=== PATIENT | male | born 1925 | race Caucasian/White ===

== ENCOUNTER 2016-08-26 00:42 | Emergency (ER) | payer MEDICARE ==
[~2016-08-26] VITALS: Ht 177.8 cm; Wt 98.4 kg
[~2016-08-26 00:42] MED LIST: ACET-785 PO; ASPI-558 PO; CALC-494 PO; CALC-709 PO; FISH1CAP28 PO; IBUP1TAB PO; LORA-326 PO; MULT-934 PO; NIAC50TA15 PO; OLME20TA11 PO; OMEP20CA81 PO; SIMV20TA80 PO; SULF500T27 PO; TOLT4CAP12 PO; TRIA1TAB PO
[2016-08-26 01:05] VITALS: Ht 177.8 cm; Wt 98.4 kg
--- NOTE | 2016-08-26 01:17 | NUR ---
BLADDER SCAN BLADDER SCAN DONE, PT MOHSEN WELL EXPLAINED TO PT AND FAMILY THAT WE WILL NEED TO PUT IN CATHETER TO EMPTY BLADDER AND GIVE RELIEF. EXPLAINED THE MORAN WILL STAY IN AND THEY WILL FOLLOW UP WITH HIS DR. FAMILY REPORTS THEY UNDERSTAND THIS, PT STATES OKAY
--- NOTE | 2016-08-26 01:36 | NUR ---
MORAN #16 FR MORAN CATH INSERTED BY NORBERT RN PT MOHSEN WELL 1000CC YELLOE URINE RETURNED PT VERBALIZED RELIEF
--- NOTE | 2016-08-26 01:47 | ERPDOC ---
Departure Disposition Decision Date: August 26, 2016 Disposition Decision Time: 02:09 Disposition: 01 DISCHARGED HOME, SELF-CARE Impression Impression Impression: Primary Impression: Urinary retention Severity: Severe Condition: Improved Seen By: Physician only Referrals: ECTOR BRAGA MD (Family) 1 Day Patient Instructions: Urinary Retention in Men (ED) Problems/Meds/Labs Reviewed?: Yes Medications reviewed and manag: Yes Additional Instructions: You have had trouble going pee. We have fixed this with a reaves catheter. Keep this in place until you are seen by your doctor. He may refer you to see a urologist. Call your doctor for an appointment tomorrow. Follow up care ordered?: Yes Mental Status: Alert, Oriented HPI - Male General Chief Complaint: Male Urogenital Problems Stated Complaint: URINATION PROBLEMS Time Seen by Provider: :17 Source: patient, family Exam Limitations: dementia HPI - Male Initial Comments 89yo man presented to the ER by family for 3+ hrs inability to urinate. Pt has had hesitancy, but never obstruction. Takes no meds for BPH. Occurred At: home Onset: Gradual Duration: 4-6 hrs Pain Scale: Now & Worst: 8/10 Severity/Quality: fullness, throbbing Location: suprapubic Radiation: none Activities at Onset: none Prior Genitourinary Problems: none Modifying Factors: WORSE WITH: urinating Associated Symptoms: nausea/vomiting Hx of Similar Symptoms: No Allergies: Coded Allergies: lisinopril (Verified Allergy, Mild, COUGH, 08/26/16) Past History Patient Medical History (1) Overactive bladder Past Medical History Metabolic: hypercholesterolemia, hypertension ENMT: allergies Cardiac: CAD GI: GERD, ulcerative colitis Psychological: dementia Vaccines Hx Influenza Vaccination: Yes (02/17) Hx Pneumococcal Vaccination: Yes (2008) Review of Systems Male: retention All other Systems All Other Systems: Reviewed and Negative Physical Exam General General Nourishment: well nourished, well developed, appears stated age, no acute distress, adult, obese General Body Habitus: well groomed Vitals and Pain First Documented Vital Signs Date Time Temp Pulse Resp B/P Pulse Ox O2 Delivery O2 Flow Rate FiO2 08/26/16 01:05 97.6 97 20 203/100 95 Room Air Weight: Kilograms: 98.400 Height (feet): 5 Height (inches): 10.00 Triage Pain Scale: RN VS reviewed by Provider: Yes Normal Exams: Head: Normocephalic w/o trauma Eyes: Pupils are PERRLA w/ EOMI, No scleral icterus, irritation ENMT: No facial trauma, nasal exudates, pharyngeal erythema Neck: Full range of motion, without adenopathy, JVD Lymphatic: No lymphadenopathy Musculoskeletal: No tenderness, or deformity noted Integumentary: No rashes, hives, or bruising noted Neurologic: Patient is alert, and oriented Psychiatric: Patient exhibits, appropriate attention Respiratory (brief) Respiratory: FOUND: clear all foster, equal bilaterally, symmetrical, NOT FOUND : rales, wheezes Cardiovascular (brief) Cardiac: FOUND: regular rate, regular rhythm, NOT FOUND: click, gallop, murmur , pedal edema, peripheral edema, rub Capillary Refill: <2 sec Pulses: all distal extremities, equal, strong Abdomen (brief) Abdominal Brief: FOUND: bowel normo active x4, soft, NOT FOUND: distended, hepatosplenomegaly, pulsatile mass, tender Differential Diagnoses Considering: Hematuria, Prostatitis, Pyelonephritis, Urinary Retention, UTI Progress Results/Orders Orders Procedure Category Date Status Time Reaves (Ed) EDM 08/26/16 Transmitted 01:33 Catheter Needs JYOTI 08/26/16 In Process Assessment 01:33 Bladder Scanner (Ed) EDM 08/26/16 Transmitted 01:33 UA, LAB 08/26/16 In Process Dip&Micro(Complete) & 01:49 Lab Results Laboratory Tests Test 08/26/16 01:49 Urine Collection Type Straight cath Urine Color Yellow Urine Turbidity Clear Urine pH 5.5 Urine Specific Crumpler 1.010 Urine Protein Trace Urine Glucose (UA) Negative Urine Ketones Negative Urine Blood 3+ Urine Nitrite Negative Urine Bilirubin Negative Urine Urobilinogen 0.2EU/DL Urine Leukocyte Esterase Negative Urine RBC Pending Urine WBC Pending Urine Bacteria Pending Progress Progress Relief of sx with reaves placement. No evidence of UTI. Pt will need to f/u with PCM +/- urology f/u. Discussed dx, prognosis, tx, and need for f/u with pt and family who voiced understanding. F/u with PCM. KENIA TENORIO DO August 26, 2016 01:47
[2016-08-26 01:55] LABS: BLOOD, URINE 3+ (NEGATIVE); COLOR,URINE YELLOW (YELLOW); LEUKOCYTE ESTERASE ,URINE NEGATIVE (NEGATIVE); NITRITE,URINE NEGATIVE (NEGATIVE); UROBILINOGEN,URINE 0.2 EU/DL (NORMAL)
--- NOTE | 2016-08-26 02:05 | NUR ---
LEG BAG LEG BAG PLACED WITH INSTRUCTIONS TO THE PATIENT, AND DAUGHTER
[2016-08-26 02:06] LABS: BACTERIA,URINE NONE SEEN (NEGATIVE); RBC,URINE 30-50 /HPF (0-3); WBC,URINE NONE SEEN /HPF (0-5)
--- NOTE | 2016-08-26 02:15 | NUR ---
TEACHING CLEANING OF THE CATHETER AND SELF TEACHING DONE FOR THE PT AND FAMILY VERBALIZE UNDERSTANDING AND DENIES ANY QUESTIONS
--- NOTE | 2016-08-26 02:41 | NUR ---
INSTRUCTIONS PT DAUGHTER AND VERBALIZE UNDERSTANDING OF ALL HAS NO QUESTIONS ABOUT CARE OF CATH OR USING THE LEG BAG WILL CALL DR BRAGA OFFICE LATER TODAY FOR FOLLOW-UP
[2016-08-26 02:43] VITALS: BP 111/59; PULSE 71; RESP 18; TEMP 97.6; O2SAT 96
--- NOTE | 2016-08-26 02:43 | NUR ---
DISMISS PT DISMISSED PER W/C WITH FAMILY
[2016-08-26] MEDS ORDERED: CARV3.123 PO (08:41)
[2016-08-26] MEDS ORDERED: LEVO75TA10 PO (08:41)
[2016-08-26] MEDS ORDERED: POTA-12 PO (08:41)
[2016-08-26] MEDS ORDERED: FURO20TA4 PO (08:41)
[2016-08-26] MEDS ORDERED: PRED10TA PO (08:41)
== END 2016-08-26 02:43 | disposition home or self-care (01) ==
LOC: ED 00:42
DX: R33.9 Retention of urine, unspecified (principal)
CPT/HCPCS: 51702; 81001

== ENCOUNTER 2016-09-03 15:08 | Inpatient (IN) ==
[2016-09-09] MEDS ORDERED: ONDANSETRON 4 MG/2 ML INJECTION IVP PRN (05:00)
[2016-09-09] MEDS ORDERED: LEVOTHYROXINE 75 MCG TABLET PO SCH (06:30)
[2016-09-09] MEDS ORDERED: OMEPRAZOLE 20 MG CAPSULE PO SCH (06:30)
[2016-09-09] MEDS ORDERED: SALINE FLUSH 10ml SYRINGE IV PRN (06:48)
[2016-09-09] MEDS ORDERED: CHOLESTYRAMINE LIGHT 4 G PACKET PO SCH (07:30)
[2016-09-09] MEDS ORDERED: CARVEDILOL 3.125 MG TABLET PO SCH (08:00)
[2016-09-09] MEDS ORDERED: LACTOBACILLUS (15B cfu) CAPSULE PO SCH (08:00)
[2016-09-09] MEDS ORDERED: PredniSONE 20 MG TABLET PO SCH (08:00)
--- NOTE | 2016-09-09 08:29 | Discharge Summary ---
Discharge Information Date of admission: 09/03/16 15:08 <Sudhakar Izquierdo - 09/09/16 13:26> 09/03/16 15:08 <Cristina Baldwin V - 09/09/16 09:43> Anticipated date of discharge: 09/09/16 <Cristina Baldwin V - 09/09/16 09:43> Attending Physician: Rome Ruiz MD <Sudhakar Izquierdo - 09/09/16 13:26> Rome Ruiz MD <Cristina Baldwin V - 09/09/16 09:43> Consults: 09/08/16 15:30 Physician Consult [CONS] Routine Consulting Provider: Sidney Gil Reason For Exam: Cont Care Ordering Provider has Notified Digital Cartographer: Yes Physician Consult [CONS] Routine Consulting Provider: Opal Skinner Reason For Exam: Cont Care Ordering Provider has Notified Digital Cartographer: Yes 09/08/16 15:31 Physician Consult [CONS] Routine Consulting Provider: Heide Hinson Reason For Exam: Cont Care Ordering Provider has Notified Digital Cartographer: Yes <Sudhakar Izquierdo - 09/09/16 13:26> 09/08/16 15:30 Physician Consult [CONS] Routine Consulting Provider: Sidney Gil Reason For Exam: Cont Care Ordering Provider has Notified Digital Cartographer: Yes Physician Consult [CONS] Routine Consulting Provider: Opal Skinner Reason For Exam: Cont Care Ordering Provider has Notified Digital Cartographer: Yes 09/08/16 15:31 Physician Consult [CONS] Routine Consulting Provider: Heide Hinson Reason For Exam: Cont Care Ordering Provider has Notified Digital Cartographer: Yes <Cristina Baldwin V - 09/09/16 08:29> - Discharge Diagnosis (1) Ulcerative colitis Status: Acute (2) Diarrhea Qualifiers: Diarrhea type: unspecified type Qualified Code(s): R19.7 - Diarrhea, unspecified Status: Resolved (3) Hyperkalemia Status: Resolved (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 (5) CKD (chronic kidney disease) Status: Chronic <Cristina Baldwin V 09/09/16 10:51> (1) Ulcerative colitis Status: Acute (2) Diarrhea Qualifiers: Diarrhea type: unspecified type Qualified Code(s): R19.7 - Diarrhea, unspecified Status: Resolved (3) Hyperkalemia Status: Resolved (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 He has been struggling with increased diarrhea for 2 weeks. He was originally seen by primary care provider at [facility] on August 23 reporting worsening diarrhea. At that time he was placed on prednisone for 7 day taper as well as Imodium and sulfasalazine. Patient was then seen at [facility] emergency room on 08/25 for acute urinary retention. At that time, a Lamas catheter was placed and patient was instructed to leave it intact for 4 weeks. He continued to have ongoing diarrhea and was up hourly overnight with liquid stools. He presented back to see primary care provider, Giovanna Buchanan APRN today for further evaluation. Given the continued diarrhea stools despite outpatient treatment. The hospitalist services were contacted and patient was accepted for direct admission for further evaluation and treatment. Kedar [place] [facility] He is hard of hearing and history and details are obtained from his at the bedside. On examination he is resting comfortably in bed without acute distress. His abdomen is soft and nontender on palpation. He does have a Lamas catheter in-place that is draining without difficulty. We did discuss advanced directives. Patient does wish to be a full code <Pieter Baldwinchristina Clark 09/09/16 09:43> Hospital Course Hospital course: S: Pt doing well today. 1 semi-formed BM this am. O: Gen: Alert and awake Cards: RRR, no murmus Abd: soft, non-tender Ext: no clubbing, cyanosis A/P: Much improved, finished 7 day abx course, will taper prednisone as outpt, discharge on lower mainainence dose of mesalamine <Sudhakar Izquierdo Matty - 09/09/16 13:26> Mr. Weinstein is a 89 year old male who was admitted on 09/03/16 for acute exacerbation of ulcerative colitis with ongoing diarrhea, failed outpatient treatment. He was placed on IV Flagyl as well as Solu-Medrol 125 milligrams IV every 6 hours for inflammation. Further laboratory studies was reviewed and leukocytosis has continued to improve. Stool panel was obtained that was negative for acute infectious process. Over the course of his hospital stay his diarrhea did improve. Due to his continued weakness. He was accepted to [facility] for skilled rehabilitation. He has completed 7 day course of Flagyl. We will decrease sulfasalazine to 500 milligrams 3 times a day. May continue to use Imodium as needed for loose stools. It is recommended that he follow with his primary care provider, Dr. Figueroa in the next 1-2 weeks. This is a brief synopsis of patient's hospitalization. For full details, please refer to chart. <Cristina Baldwin V - 09/09/16 09:43> DVT Prophylaxis: SCD's <Cristina Baldwin V - 09/09/16 09:43> Discharge Plan - Med Rec/Dispo Prescriptions: Continue Loperamide HCl [Loperamide] See Label Instructions PO Q4H PRN #30 PRN Reason: loose stool Discontinued Calcium Citrate/Vitamin D3 (Citracal + D Caplet) 1 tab PO BID #0 No Action Tolterodine Tartrate [Detrol LA] 4 mg PO DAILY #0 acetaminophen 325 mg tablet 325 mg PO PRN #0 Calcium Carbonate/Vitamin D3 (Vitamin D-3 400 Units Tablet) 1 tab PO DAILY # 0 Ibuprofen/Diphenhydramine (Advil Pm Caplet) 1 tab PO HS #0 Loratadine (Claritin) 10 mg PO BID #0 triamterene 37.5 mg-hydrochlorothiazide 25 mg tablet 1 tab PO DAILY #0 Niacin 50 mg PO DAILY #0 Willow-3 Fatty Acids/Fish Oil [Willow 3 1,000 mg Softgel] 2 cap PO BID #0 Omeprazole (Prilosec) 20 mg PO BID #0 Simvastatin [Zocor] 20 mg PO HS #0 PredniSONE [Deltasone] 10 mg PO DAILY #39 <Sudhakar Izquierdo - 09/09/16 13: 26> - Disposition 03 To [facility] ([facility]) <Sudhakar Izquierdo - 09/09/16 13:26>
[2016-09-09] MEDS ORDERED: TRIAMTERENE/HCTZ 37.5 MG-25 MG TABLET PO SCH (09:00)
[2016-09-09] MEDS ORDERED: LORATADINE 10 MG TABLET PO SCH (09:00)
[2016-09-09] MEDS ORDERED: CYANOCOBALAMIN (B-12) 500mcg TABLET PO SCH (09:00)
--- NOTE | 2016-09-09 09:49 | Extended Care Facility Orders ---
Admission Orders Admit to:: Care Home Allergies/Adverse Reactions: Allergies levofloxacin Allergy (Intermediate, Verified 09/08/16 17:01) CONFUSION lisinopril Allergy (Mild, Verified 09/08/16 17:01) COUGH Admitting Diagnosis: Uc With Acute Flair Admitting Physician: Rome Ruiz MD Attending Physician: Rome Ruiz MD Code Status: Full code Rehab Potential: good Rehab Prognosis: good Diet: 09/08/16 Dinner Regular Diet [DIET] Diet Modifications: May use Facility Protocol or Standing Orders: Yes May have flu vaccine: Yes Evaluations/Treatment: PT, OT Care Home Certification: I certify that SNF services are required to be given on an Inpatient basis because of the patients need for group home care on a continuing basis for the condition(s) for which he/she received inpatient hospital services prior to his/her transfer to the SNF. SNF inpatient care is necessary for the following reasons - Additional Information
[2016-09-09] MEDS ORDERED: NS 1,000 ML IV SCH (20:00)
[2016-09-09] MEDS ORDERED: SIMVASTATIN 20 MG TABLET PO SCH (22:00)
[2016-09-09] MEDS ORDERED: DiphenhydrAMINE 25 MG CAPSULE PO SCH (22:00)
[2016-09-09] MEDS ORDERED: IBUPROFEN 200 MG TABLET PO SCH (22:00)
== END 2016-09-09 14:26 | DRG 387 ==
LOC: MED 15:08
PROVIDERS: ADMIT Hospitalist; ATTEND Hospitalist

== ENCOUNTER 2016-09-25 03:16 | Inpatient (IN) ==
[2016-09-25] MEDS ORDERED: NS 1,000 ML IV ONE (03:39)
--- NOTE | 2016-09-25 03:39 | Emergency Department Report ---
Altered Mental Status HPI - General Stated Complaint: Confusion Time Seen by Provider: 09/25/16 03:30 Source: patient, EMS Mode of arrival: EMS Limitations: altered mental status - History of Present Illness HPI narrative: Patient presents after recent hospitalization diagnosed with "upper respiratory infection", finishing zithromax prescription today. He is currently in a rehab unit following hospitalization. Nursing staff called EMS tonight with altered mental status and abnormal vital signs including hypoxemia, fever, and tachyardia. Patient endorses low abdominal/pelvic pain. Patient had O2 saturation of 87% earlier in the day, was placed on oxygen and improved. Staff found patient to be increasingly confused, poorly directable, and abnormal vital signs were of concern. EMS checked patient's CO level and found it to be elevated at 15 on scene. A bag of NS was started on route to the ED. Currently patient is asymptomatic and has no complaints. - Related Data Home Medications Medication Instructions Recorded Confirmed Calcium Carbonate/Vitamin D3 1 tab PO DAILY #0 07/10/09 09/08/16 (Vitamin D-3 400 Units Tablet) Ibuprofen/Diphenhydramine (Advil 1 tab PO HS #0 07/10/09 09/08/16 Pm Caplet) Loratadine (Claritin) 10 mg PO BID #0 07/10/09 09/08/16 Niacin 50 mg PO DAILY #0 07/10/09 09/08/16 Galvin-3 Fatty Acids/Fish Oil 2 cap PO BID #0 07/10/09 09/08/16 [Galvin 3 1,000 mg Softgel] Omeprazole (Prilosec) 20 mg PO BID #0 07/10/09 09/08/16 Simvastatin [Zocor] 20 mg PO HS #0 07/10/09 09/08/16 Tolterodine Tartrate [Detrol LA] 4 mg PO DAILY #0 07/10/09 09/08/16 acetaminophen 325 mg tablet 325 mg PO PRN #0 07/10/09 09/08/16 triamterene 37.5 1 tab PO DAILY #0 07/10/09 09/08/16 mg-hydrochlorothiazide 25 mg tablet carvedilol 3.125 mg tablet 3.125 mg PO BID 09/02/16 09/08/16 furosemide 20 mg tablet 20 mg PO .COMPLEX tab 09/02/16 09/08/16 levothyroxine 75 mcg tablet 75 mcg PO ACB tab 09/02/16 09/08/16 losartan 100 mg tablet 50 mg PO BID tab 09/02/16 09/08/16 multivitamin tablet 1 tab PO DAILY 09/02/16 09/08/16 potassium chloride ER 10 mEq 10 meq PO .TIW tab 09/02/16 09/08/16 tablet,extended release sulfasalazine 500 mg tablet 500 mg PO TID #0 tab 09/02/16 09/08/16 Previous Rx's Medication Instructions Recorded PredniSONE [Deltasone] 10 mg PO DAILY #39 09/08/16 Loperamide HCl [Loperamide] See Label Instructions PO Q4H PRN 09/09/16 #30 diphenoxylate-atropine 2.5 1 tab PO TID PRN #30 tab 09/17/16 mg-0.025 mg tablet Allergies Allergy/AdvReac Type Severity Reaction Status Date / Time levofloxacin Allergy Intermediate CONFUSION Verified 09/08/16 17:01 lisinopril Allergy Mild COUGH Verified 09/08/16 17:01 Review of Systems All systems: reviewed and negative except as stated Neurological: Reports: confusion [facility] Medical History (Last Updated 09/09/16 @ 09:43 by Cristina Baldwin APRN) CKD (chronic kidney disease) stage 2, 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) Diabetes mellitus (Chronic Medical) 1997 GERD (gastroesophageal reflux disease) (Chronic Medical) HTN (hypertension) (Chronic Medical) Hx of adenomatous polyp of colon (Chronic Medical) Hyperlipidemia (Chronic Medical) Obesity (BMI 30.0-34.9) (Chronic Medical) Presbycusis (Chronic Medical) Psoriasis (Chronic Medical) L leg Ulcerative colitis (Chronic Medical) Family History: Family History Father , at age 89 CHF (congestive heart failure) Mother , at age 82 CHF (congestive heart failure) Brother , at age 43 Diabetes Brother , at age 47 Chronic bronchitis Thrombosis - Social History Smoking status: Never smoker Physical Exam - Limitations Limitations: altered mental status (patient is alert, poorly oriented but cooperative) - Normal Exams: Head:: Normocephalic without trauma Eyes:: Pupils are PERRLA w/ EOMI, No scleral icterus, irritation, or foreign bodies noted ENMT:: No facial trauma, nasal exudates, pharyngeal erythema, or exudates are noted Neck:: Full range of motion, without adenopathy, JVD, bruits or thyromegaly Chest/Respirations:: Clear all foster (course but clear), with good airflow, and symmetry bilaterally Cardiovascular:: Regular rate and rhythm, without murmur or gallop, Pulses 2+ all extremities, capillary refill, <2 seconds all extremities Abdomen:: Bowel sounds positive, soft, non-tender, non-distended, no hepatosplenomegaly, masses or bruits noted Lymphatic:: No lymphadenopathy, or lymphedema noted Musculoskeletal:: No tenderness, or deformity noted, good range of motion, all extremities Integumentary:: No rashes, hives, or bruising noted, hair and nails, without abnormality Neurological:: Patient is alert, and oriented, cranial nerves, motor/sensory/ cerebellar, exams w/o gross deficits, to observation Psychiatric:: Patient exhibits, appropriate attention, emotion and affect Altered Mental Status - MDM Narrative Medical decision making narrative: CBC - N CMP - N lactate -N procalcitonin - N carboxyhemoglobin - N chest x-ray - right lower lobe infiltrate UA - normal Case discussed with Dr. Shaffer, we'll admit for right lower lobe pneumonia, start patient on cefepime, and continue IV fluids and respiratory care - Lab Data Result diagrams: 09/25/16 03:59 09/25/16 03:59 Critical Care Time Critical Care Time: Yes Total Critical Care Time: 45 Attestation: Patient required critical care for tachycardia, hypotension, and decreased level of consciousness secondary to right lower lobe pneumonia with dehydration Disposition Clinical Impression: Right lower lobe pneumonia Qualifiers: Pneumonia type: due to unspecified organism Qualified Code(s): J18.1 - Lobar pneumonia, unspecified organism Disposition: 02 To [facility] [place] Acute Care Condition: Improved Prescriptions: No Action Tolterodine Tartrate [Detrol LA] 4 mg PO DAILY #0 acetaminophen 325 mg tablet 325 mg PO PRN #0 Calcium Carbonate/Vitamin D3 (Vitamin D-3 400 Units Tablet) 1 tab PO DAILY # 0 Ibuprofen/Diphenhydramine (Advil Pm Caplet) 1 tab PO HS #0 Loperamide HCl [Loperamide] See Label Instructions PO Q4H PRN #30 PRN Reason: loose stool Loratadine (Claritin) 10 mg PO BID #0 triamterene 37.5 mg-hydrochlorothiazide 25 mg tablet 1 tab PO DAILY #0 Niacin 50 mg PO DAILY #0 Galvin-3 Fatty Acids/Fish Oil [Galvin 3 1,000 mg Softgel] 2 cap PO BID #0 Omeprazole (Prilosec) 20 mg PO BID #0 Simvastatin [Zocor] 20 mg PO HS #0 PredniSONE [Deltasone] 10 mg PO DAILY #39 Referrals: Vickey Figueroa MD [Family Provider] - - Seen By: physician
[2016-09-25] MEDS: NS 1,000 ML IV SCH ×2 (04:00→20:04)
[2016-09-25] MEDS ORDERED: ALBUTEROL 2.5mg/3ml (0.083%) NEB AEROSOL ONE (04:26)
[2016-09-25] MEDS ORDERED: LEVOFLOXACIN PREMIX 500 MG/100 ML BAG IV SCH (05:00)
[2016-09-25] MEDS ORDERED: ACETAMINOPHEN 325 MG TABLET PO PRN (05:08)
[2016-09-25] MEDS ORDERED: SENNA + DOCUSATE TABLET PO PRN (05:08)
[2016-09-25] MEDS ORDERED: ONDANSETRON 4 MG/2 ML INJECTION IVP PRN (05:08)
[2016-09-25] MEDS ORDERED: NS 1,000 ML IV SCH (05:15)
[2016-09-25] MEDS ORDERED: CEFEPIME 2 GM INJECTION IV ONE (05:30)
--- NOTE | 2016-09-25 06:47 | History & Physical Report ---
History of Present Illness Date: 09/25/16 Chief complaint: cough, wheezing HPI: Mr. Weinstein is a 89 yo who was recently admitted for ulcerative colitis 2 weeks ago and sent to [facility] for inpt rehab and presents back to the ER due to weakness and cough. The family at the bedside report that he started to develop a cough with wheezing about a week ago. He was then placed on azithromycin and breahting treatments for this. His symptoms got progressively worse over the past 3 days, early this morning staff noted that his Sa)2 was in the 80's and pt was then brought to the er. Review of Systems - Constitutional Constitutional: Present: fever(s). Absent: anorexia - Cardiovascular Cardiovascular: Absent: chest pain, syncope - Respiratory Respiratory: Present: cough, dyspnea, dyspnea on exertion, wheezing. 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) Diabetes mellitus (Chronic Medical) 1997 GERD (gastroesophageal reflux disease) (Chronic Medical) HTN (hypertension) (Chronic Medical) Hx of adenomatous polyp of colon (Chronic Medical) Hyperlipidemia (Chronic Medical) Obesity (BMI 30.0-34.9) (Chronic Medical) Presbycusis (Chronic Medical) Psoriasis (Chronic Medical) L leg Ulcerative colitis (Chronic Medical) Family History: Family History Father , at age 89 CHF (congestive heart failure) Mother , at age 82 CHF (congestive heart failure) Brother , at age 43 Diabetes Brother , at age 47 Chronic bronchitis Thrombosis - Social History Smoking status: Never smoker Medications Home Medications Medication Instructions Recorded Confirmed Type Calcium Carbonate/Vitamin D3 1 tab PO DAILY #0 07/10/09 09/08/16 History (Vitamin D-3 400 Units Tablet) Ibuprofen/Diphenhydramine (Advil 1 tab PO HS #0 07/10/09 09/08/16 History Pm Caplet) Loratadine (Claritin) 10 mg PO BID #0 07/10/09 09/08/16 History Niacin 50 mg PO DAILY #0 07/10/09 09/08/16 History [place]-3 Fatty Acids/Fish Oil 2 cap PO BID #0 07/10/09 09/08/16 History [[place] 3 1,000 mg Softgel] Omeprazole (Prilosec) 20 mg PO BID #0 07/10/09 09/08/16 History Simvastatin [Zocor] 20 mg PO HS #0 07/10/09 09/08/16 History Tolterodine Tartrate [Detrol LA] 4 mg PO DAILY #0 07/10/09 09/08/16 History acetaminophen 325 mg tablet 325 mg PO PRN #0 07/10/09 09/08/16 History triamterene 37.5 1 tab PO DAILY #0 07/10/09 09/08/16 History mg-hydrochlorothiazide 25 mg tablet carvedilol 3.125 mg tablet 3.125 mg PO BID 09/02/16 09/08/16 History furosemide 20 mg tablet 20 mg PO .COMPLEX tab 09/02/16 09/08/16 History levothyroxine 75 mcg tablet 75 mcg PO ACB tab 09/02/16 09/08/16 History losartan 100 mg tablet 50 mg PO BID tab 09/02/16 09/08/16 History multivitamin tablet 1 tab PO DAILY 09/02/16 09/08/16 History potassium chloride ER 10 mEq 10 meq PO .TIW tab 09/02/16 09/08/16 History tablet,extended release sulfasalazine 500 mg tablet 500 mg PO TID #0 tab 09/02/16 09/08/16 History Allergies Allergy/AdvReac Type Severity Reaction Status Date / Time levofloxacin Allergy Intermediate CONFUSION Verified 09/08/16 17:01 lisinopril Allergy Mild COUGH Verified 09/08/16 17:01 Exam Vital Signs: Temp Pulse Resp BP Pulse Ox 98.5 F 95 22 134/59 98 09/25/16 03:15 09/25/16 06:04 09/25/16 05:10 09/25/16 06:04 09/25/16 06:04 Height: 1.83 m Weight: 105.3 kg - Constitutional Present: no acute distress - Routine Respiratory Exam Present: rhonchi, wheezes, crackles - Routine Cardiovascular Exam Present: RRR, murmur - Routine Abdominal Exam Present: soft, normoactive bowel sounds, tenderness, non distended - Routine Skin Exam Present: lesions. Absent: intact Comments: decubitus on sacral area Results - Labs CBC & Chem 7: 09/25/16 03:59 09/25/16 03:59 Assessment and Plan (1) Right lower lobe pneumonia Current visit: Yes Status: Acute 09/25/16 06:50 The pt has HCAP but allergic to Levoquin, thus will proceed with Cefepime and vanco. Pharmacy consulted for dosing, also continue on breathing tx, supplemental oxygen, CXR reviewed, repeat labs in am. (2) Ulcerative colitis Current visit: No Status: Acute 09/25/16 06:52 continues to be a problem, will cont on lomtil, wound care for the decubitus, (3) CKD (chronic kidney disease) Current visit: No Status: Chronic (4) Anemia Current visit: Yes Status: Acute (5) Anemia Current visit: Yes Status: Acute Sepsis Assessment - Evaluation Sepsis screening result: No Definite Risk - Focused Exam Vital Signs Pulse BP Pulse Ox 09/25/16 06:04 95 134/59 98 09/25/16 06:00 96 92 09/25/16 05:58 99 92 Hospital Course Summary Disclaimer: The visit summary below is not to be considered part of the above Progress Note.
--- NOTE | 2016-09-25 08:00 | Pharmacy Consult-Antibiotics ---
Pharmacy Consult-Vancomycin - Laboratory Information WBC 12.6 T/MM3 (4.5-11.0) H 09/25/16 03:59 BUN 34.0 MG/DL (9-20) H 09/25/16 03:59 Creatinine 1.1 MG/DL (0.8-1.5) 09/25/16 03:59 Procalcitonin < 0.05 NG/ML 09/25/16 03:59 - Consult Information VANCOMYCIN CONSULT: Dx: PNEUMONIA Current Renal Fx: SCr = 1.1mg/dl. Will give Vancomycin 1500mg IV LOADING DOSE followed by vancomycin 1 gram IV q12hrs. Will continue to monitor and adjust regimen to maintain therapeutic levels. Thank you.
[2016-09-25] MEDS ORDERED: CEFEPIME 1 GM in NS 100 ML IV SCH ×2 (09:00→11:30)
[2016-09-25] MEDS ORDERED: CEFEPIME 2 GM INJECTION IV SCH (09:00)
--- NOTE | 2016-09-25 13:20 | Progress Note ---
Subjective: Pt doing well this am, denies any cp, sob, n/v/d, f/c. Reports a cough that is a little worse then baseline but overall reports feeling ok. Pt is alert and oriented x3. Objective Vital signs: Temp Pulse Resp BP Pulse Ox 97.1 F 95 22 109/64 95 09/25/16 07:47 09/25/16 07:47 09/25/16 06:00 09/25/16 07:47 09/25/16 07:47 Weight: 105.1 kg - Constitutional Present: no acute distress - Routine HEENT Exam Head: Present: normocephalic, atraumatic Eye: Present: EOMI - Routine Respiratory Exam Present: CTA bilaterally. Absent: wheezes - Routine Cardiovascular Exam Present: RRR, no murmur - Routine Abdominal Exam Present: soft, non distended, non tender - Routine Extremities Exam Present: edema. Absent: cyanosis, clubbing - Routine Skin Exam Present: intact, dry - Routine Neurological Exam Present: alert, oriented X3 Results - Labs CBC & Chem 7: 09/25/16 03:59 09/25/16 03:59 Assessment and Plan (1) Ulcerative colitis Current visit: No Status: Acute 09/25/16 06:52 continues to be a problem, will cont on lomtil, wound care for the decubitus, (2) CKD (chronic kidney disease) Current visit: No Status: Chronic (3) Right lower lobe pneumonia Current visit: Yes Status: Acute 09/25/16 06:50 The pt has HCAP but allergic to Levoquin, thus will proceed with Cefepime and vanco. Pharmacy consulted for dosing, also continue on breathing tx, supplemental oxygen, CXR reviewed, repeat labs in am. (4) Anemia Current visit: Yes Status: Acute (5) Anemia Current visit: Yes Status: Acute Assessment and Plan: URI -Pt likely has URI, CXR does not show any acute pathology, pt has minimal cough and sputum production -Vitals are stable, on RA sats are ~95% -Will do viral panel, mentation seems to be at baseline -Will stop all abx UC -Stable, on prednisone? CKD HTN DM Sepsis Assessment - Evaluation Sepsis screening result: No Definite Risk - Focused Exam Vital Signs Temp Pulse Resp BP Pulse Ox 09/25/16 07:47 97.1 F 95 109/64 95 09/25/16 06:04 95 134/59 98 09/25/16 06:00 96 22 134/59 92 09/25/16 05:58 99 92 Respiratory exam: Present: rhonchi, wheezes, crackles Cardiovascular exam: Present: RRR, murmur Hospital Course Summary Disclaimer: The visit summary below is not to be considered part of the above Progress Note. Hospital Course: 09/25/16 13:20 Pt seems to be doing well this am, unclear why he was admitted, pt was likely just dehydrated and possibly had URI, labs and vitals are mostly unremarkable for acute pathology. Will plan for d/c tomorrow.
[2016-09-25] MEDS: BUDESONIDE INH.SOLN 0.5mg/2ml NEB AEROSOL SCH (21:04)
[2016-09-25] MEDS: SIMVASTATIN 20 MG TABLET PO SCH (23:27)
[2016-09-26] MEDS ORDERED: FUROSEMIDE 20 MG/2 ML INJECTION IVP ONE (02:27)
[2016-09-26] MEDS: SALINE FLUSH 10ml SYRINGE IVF PRN (02:42)
[2016-09-26] MEDS: NS 1,000 ML IV SCH (06:42)
[2016-09-26] MEDS ORDERED: 1/2 NS 500 ML IV SCH (07:56)
--- NOTE | 2016-09-26 09:06 | XRay Report ---
INDICATION: sepsis PROCEDURE: CHEST 2-VIEWS UPRIGHT (PA & LAT) Encounter: Initial COMPARISON: None FINDINGS: Patchy airspace disease in the lower lobes, right greater than left. Small pleural effusions. No pneumothorax The heart size, mediastinal contours and pulmonary vascularity are within normal limits. There is no significant skeletal abnormality. IMPRESSION: Lower lobe pneumonia or aspiration with small effusions. .
--- NOTE | 2016-09-26 09:17 | Progress Note ---
Subjective: Pt denies any cp, sob, n/v/d, f/c. Reports he is feeling okay but would like to talk to his daughter and son in law. Objective Vital signs: Temp Pulse Resp BP Pulse Ox 99.1 F 101 H 26 H 141/77 H 97 09/26/16 05:10 09/26/16 08:03 09/26/16 05:10 09/26/16 05:10 09/26/16 05:10 Weight: 105.9 kg - Constitutional Present: no acute distress - Routine HEENT Exam Head: Present: normocephalic, atraumatic Eye: Present: EOMI ENT: Present: mucous membranes moist - Routine Respiratory Exam Present: CTA bilaterally. Absent: wheezes - Routine Cardiovascular Exam Present: RRR, no murmur - Routine Abdominal Exam Present: soft, non distended, non tender - Routine Extremities Exam Present: edema. Absent: cyanosis, clubbing - Routine Skin Exam Present: intact, dry Results - Labs CBC & Chem 7: 09/26/16 04:37 09/26/16 04:37 Assessment and Plan (1) Ulcerative colitis Current visit: No Status: Acute 09/25/16 06:52 continues to be a problem, will cont on lomtil, wound care for the decubitus, (2) CKD (chronic kidney disease) Current visit: No Status: Chronic (3) Right lower lobe pneumonia Current visit: Yes Status: Acute 09/25/16 06:50 The pt has HCAP but allergic to Levoquin, thus will proceed with Cefepime and vanco. Pharmacy consulted for dosing, also continue on breathing tx, supplemental oxygen, CXR reviewed, repeat labs in am. (4) Anemia Current visit: Yes Status: Acute (5) Anemia Current visit: Yes Status: Acute Assessment and Plan: Cough -CXR does not show any acute pathology, pt has minimal cough and sputum production -Vitals are stable, on RA sats are ~95% -viral panel neg, mentation seems to be at baseline -Will stop all abx AMS/dementia -Pt likely has dementia and is likely close to baseline -Pt was admitted to the hospital a couple of weeks ago and had very similar mentation most of the hospital stay -TSH wnls, B12 wnls, CT head in 08/25 showed moderate atrophy and chronic microvascular ischemia -Will discuss case with family, pt needs neuropsych testing UC -Stable, on prednisone Leukocytosis -On prednisone Mild Hypernatremia -Na 146, will do 150ml/hr D5, recheck Na in a couple of hrs LE edema -Pt has 3+ pitting edema up to thigh and scrotum -Pt received generous IV fluids on admission d/t possibility of infection -Will do lasix 40 IV BID CKD -Stable Ppx -DVT Sepsis Assessment - Evaluation Sepsis screening result: Sepsis Risk - Focused Exam Vital Signs Temp Pulse Resp BP Pulse Ox 09/26/16 08:03 101 H 09/26/16 05:10 99.1 F 104 H 26 H 141/77 H 97 09/26/16 00:00 102 H 09/25/16 23:36 97.4 F 111 H 24 156/85 H 91 Respiratory exam: Present: rhonchi, wheezes, crackles Cardiovascular exam: Present: RRR, murmur Hospital Course Summary Disclaimer: The visit summary below is not to be considered part of the above Progress Note. Hospital Course: 09/25/16 13:20 Pt seems to be doing well this am, unclear why he was admitted, pt was likely just dehydrated and possibly had URI, labs and vitals are mostly unremarkable for acute pathology. Will plan for d/c tomorrow. 09/26/16 09:31 Pt doing well, will treat hypernatremia and fluid overload today and plan for d/ c back to facility on Tuesday.
[2016-09-26] MEDS: FUROSEMIDE 40 MG/4 ML INJECTION IVP SCH ×3 (09:35→21:46)
[2016-09-26] MEDS: PredniSONE 10 MG TABLET PO SCH (09:35)
[2016-09-26] MEDS: D5W 1,000 ML IV SCH ×2 (09:35→16:33)
[2016-09-26] MEDS: ENOXAPARIN 40 MG/0.4 ML INJECTION SQ SCH (09:47)
[2016-09-26] MEDS: BUDESONIDE INH.SOLN 0.5mg/2ml NEB AEROSOL SCH ×2 (10:50→19:47)
[2016-09-26] MEDS ORDERED: LOPERAMIDE 2 MG CAPSULE PO PRN (13:38)
[2016-09-26] MEDS: SIMVASTATIN 20 MG TABLET PO SCH (21:45)
[2016-09-27] MEDS: PredniSONE 10 MG TABLET PO SCH (09:29)
[2016-09-27] MEDS: ENOXAPARIN 40 MG/0.4 ML INJECTION SQ SCH (09:29)
[2016-09-27] MEDS: FUROSEMIDE 40 MG/4 ML INJECTION IVP SCH ×2 (09:31→20:43)
[2016-09-27] MEDS: BUDESONIDE INH.SOLN 0.5mg/2ml NEB AEROSOL SCH ×2 (09:34→19:15)
[2016-09-27] MEDS: IPRATROPIUM/ALBUTEROL 2.5mg-0.5mg/3ml NEB AEROSOL SCH ×2 (09:34→19:15)
--- NOTE | 2016-09-27 10:52 | Discharge Summary ---
Discharge Information Date of admission: 09/25/16 05:36 Anticipated date of discharge: 09/27/16 Attending Physician: Aguilar Malik MD Primary care physician: Vickey Figueroa MD Consults: 09/26/16 13:33 [facility] Consult [CONS] Routine Reason for consultation: pressure ulcers to buttocks - Discharge Diagnosis (1) Ulcerative colitis Status: Chronic (2) CKD (chronic kidney disease) Status: Chronic (3) Anemia Status: Acute (4) Anemia Status: Acute - Laboratory Labs: 09/26/16 04:37 09/27/16 04:31 Laboratory Results - last 72 hr 09/25/16 09/25/16 09/25/16 03:59 03:59 03:59 WBC 12.6 H RBC 2.20 L Hgb 8.3 L Hct 26.3 L MCV 119.5 H MCH 37.7 H MCHC 31.6 RDW Std Deviation 54.6 H Plt Count 260 MPV 9.4 Immature Gran % (Auto) 0.4 Neut % (Auto) 59.4 Lymph % (Auto) 30.7 [place] % (Auto) 7.1 Eos % (Auto) 2.1 Baso % (Auto) 0.3 Neut # 7.5 Lymph # 3.9 [place] # 0.9 H Eos # 0.3 Baso # 0.0 Abs Immat Gran (auto) 0.05 H Carboxyhemoglobin Turbidity < 20 Sodium 145 H Potassium 4.3 Chloride 114 H Carbon Dioxide 20 L Anion Gap 11 BUN 34.0 H Creatinine 1.1 GFR Calculation 63 BUN/Creatinine Ratio 31 H Glucose 147 H Calculated Osmolality 290 H Calcium 8.2 L Phosphorus Total Bilirubin 0.30 Conjugated Bilirubin 0.00 Unconjugated Bilirubin 0.00 Icterus Index < 2 AST 17 ALT 32 Alkaline Phosphatase 59 B-Natriuretic Peptide Total Protein 4.9 L Albumin 2.8 L Globulin 2.1 L Albumin/Globulin Ratio 1.3 Plasma Lactate Folate Procalcitonin TSH Specimen Hemolysis < 15 Ur Collection Type Urine, reaves chronic Urine Color Yellow Urine Clarity Clear Urine pH 5.5 Ur Specific [place] 1.025 Urine Protein Trace A Urine Glucose (UA) Negative Urine Ketones Negative Urine Occult Blood Negative Urine Nitrate Negative Urine Bilirubin Negative Urine Urobilinogen 0.2 Ur Leukocyte Esterase Negative Urinalysis Comment Microscopic not ind. Adenovirus (PCR) B.parapertussis DNA PCR C. pneumoniae DNA (PCR) Coronavirus OC43 (PCR) Coronavirus HKU1 (PCR) Coronavirus 229E (PCR) Coronavirus NL63 (PCR) Human Metapneumovirus Influenza Type A (PCR) Influenza Type B (PCR) M. pneumoniae (PCR) Parainfluenza 1 (PCR) Parainfluenza 2 (PCR) Parainfluenza 3 (PCR) Parainfluenza 4 (PCR) RSV (PCR) Entero/Rhino (PCR) 09/25/16 09/25/16 09/25/16 03:59 03:59 03:59 WBC RBC Hgb Hct MCV MCH MCHC RDW Std Deviation Plt Count MPV Immature Gran % (Auto) Neut % (Auto) Lymph % (Auto) [place] % (Auto) Eos % (Auto) Baso % (Auto) Neut # Lymph # [place] # Eos # Baso # Abs Immat Gran (auto) Carboxyhemoglobin 0.9 Turbidity Sodium Potassium Chloride Carbon Dioxide Anion Gap BUN Creatinine GFR Calculation BUN/Creatinine Ratio Glucose Calculated Osmolality Calcium Phosphorus Total Bilirubin Conjugated Bilirubin Unconjugated Bilirubin Icterus Index AST ALT Alkaline Phosphatase B-Natriuretic Peptide Total Protein Albumin Globulin Albumin/Globulin Ratio Plasma Lactate 1.7 Folate Procalcitonin < 0.05 TSH Specimen Hemolysis Ur Collection Type Urine Color Urine Clarity Urine pH Ur Specific [place] Urine Protein Urine Glucose (UA) Urine Ketones Urine Occult Blood Urine Nitrate Urine Bilirubin Urine Urobilinogen Ur Leukocyte Esterase Urinalysis Comment Adenovirus (PCR) B.parapertussis DNA PCR C. pneumoniae DNA (PCR) Coronavirus OC43 (PCR) Coronavirus HKU1 (PCR) Coronavirus 229E (PCR) Coronavirus NL63 (PCR) Human Metapneumovirus Influenza Type A (PCR) Influenza Type B (PCR) M. pneumoniae (PCR) Parainfluenza 1 (PCR) Parainfluenza 2 (PCR) Parainfluenza 3 (PCR) Parainfluenza 4 (PCR) RSV (PCR) Entero/Rhino (PCR) 09/25/16 09/25/16 09/26/16 07:38 14:31 04:37 WBC 12.1 H RBC 2.30 L Hgb 8.6 L Hct 27.6 L MCV 120.0 H MCH 37.4 H MCHC 31.2 RDW Std Deviation 54.9 H Plt Count 269 MPV 9.4 Immature Gran % (Auto) 0.3 Neut % (Auto) 56.3 Lymph % (Auto) 32.7 [place] % (Auto) 8.2 Eos % (Auto) 2.2 Baso % (Auto) 0.3 Neut # 6.8 Lymph # 4.0 [place] # 1.0 H Eos # 0.3 Baso # 0.0 Abs Immat Gran (auto) 0.04 H Carboxyhemoglobin Turbidity Sodium Potassium Chloride Carbon Dioxide Anion Gap BUN Creatinine GFR Calculation BUN/Creatinine Ratio Glucose Calculated Osmolality Calcium Phosphorus Total Bilirubin Conjugated Bilirubin Unconjugated Bilirubin Icterus Index AST ALT Alkaline Phosphatase B-Natriuretic Peptide Total Protein Albumin Globulin Albumin/Globulin Ratio Plasma Lactate 1.1 Folate Procalcitonin TSH Specimen Hemolysis Ur Collection Type Urine Color Urine Clarity Urine pH Ur Specific [place] Urine Protein Urine Glucose (UA) Urine Ketones Urine Occult Blood Urine Nitrate Urine Bilirubin Urine Urobilinogen Ur Leukocyte Esterase Urinalysis Comment Adenovirus (PCR) Negative B.parapertussis DNA PCR Negative C. pneumoniae DNA (PCR) Negative Coronavirus OC43 (PCR) Negative Coronavirus HKU1 (PCR) Negative Coronavirus 229E (PCR) Negative Coronavirus NL63 (PCR) Negative Human Metapneumovirus Negative Influenza Type A (PCR) Negative Influenza Type B (PCR) Negative M. pneumoniae (PCR) Negative Parainfluenza 1 (PCR) Negative Parainfluenza 2 (PCR) Negative Parainfluenza 3 (PCR) Negative Parainfluenza 4 (PCR) Negative RSV (PCR) Negative Entero/Rhino (PCR) Negative 09/26/16 09/26/16 09/26/16 04:37 11:35 11:35 WBC RBC Hgb Hct MCV MCH MCHC RDW Std Deviation Plt Count MPV Immature Gran % (Auto) Neut % (Auto) Lymph % (Auto) [place] % (Auto) Eos % (Auto) Baso % (Auto) Neut # Lymph # [place] # Eos # Baso # Abs Immat Gran (auto) Carboxyhemoglobin Turbidity < 20 Sodium 146 H 145 H Potassium 4.1 Chloride 115 H Carbon Dioxide 22 Anion Gap 9 BUN 30.0 H Creatinine 1.0 GFR Calculation 71 BUN/Creatinine Ratio 30 H Glucose 156 H Calculated Osmolality 290 H Calcium 8.2 L Phosphorus 3.0 Total Bilirubin Conjugated Bilirubin Unconjugated Bilirubin Icterus Index < 2 AST ALT Alkaline Phosphatase B-Natriuretic Peptide 8050 H Total Protein Albumin 2.8 L Globulin Albumin/Globulin Ratio Plasma Lactate Folate 11.3 Procalcitonin TSH 3.70 Specimen Hemolysis < 15 Ur Collection Type Urine Color Urine Clarity Urine pH Ur Specific [place] Urine Protein Urine Glucose (UA) Urine Ketones Urine Occult Blood Urine Nitrate Urine Bilirubin Urine Urobilinogen Ur Leukocyte Esterase Urinalysis Comment Adenovirus (PCR) B.parapertussis DNA PCR C. pneumoniae DNA (PCR) Coronavirus OC43 (PCR) Coronavirus HKU1 (PCR) Coronavirus 229E (PCR) Coronavirus NL63 (PCR) Human Metapneumovirus Influenza Type A (PCR) Influenza Type B (PCR) M. pneumoniae (PCR) Parainfluenza 1 (PCR) Parainfluenza 2 (PCR) Parainfluenza 3 (PCR) Parainfluenza 4 (PCR) RSV (PCR) Entero/Rhino (PCR) 09/26/16 09/26/16 09/27/16 17:01 17:01 04:31 WBC RBC Hgb Hct MCV MCH MCHC RDW Std Deviation Plt Count MPV Immature Gran % (Auto) Neut % (Auto) Lymph % (Auto) [place] % (Auto) Eos % (Auto) Baso % (Auto) Neut # Lymph # [place] # Eos # Baso # Abs Immat Gran (auto) Carboxyhemoglobin Turbidity < 20 < 20 Sodium 141 141 142 Potassium 4.1 4.2 Chloride 110 H 109 H Carbon Dioxide 22 23 Anion Gap 9 10 BUN 32.0 H 31.0 H Creatinine 1.1 1.1 GFR Calculation 63 63 BUN/Creatinine Ratio 29 H 28 H Glucose 189 H 136 H Calculated Osmolality 283 H 282 H Calcium 8.1 L 8.1 L Phosphorus 3.0 3.0 Total Bilirubin Conjugated Bilirubin Unconjugated Bilirubin Icterus Index < 2 < 2 AST ALT Alkaline Phosphatase B-Natriuretic Peptide Total Protein Albumin 2.7 L 2.7 L Globulin Albumin/Globulin Ratio Plasma Lactate Folate Procalcitonin TSH Specimen Hemolysis < 15 < 15 Ur Collection Type Urine Color Urine Clarity Urine pH Ur Specific [place] Urine Protein Urine Glucose (UA) Urine Ketones Urine Occult Blood Urine Nitrate Urine Bilirubin Urine Urobilinogen Ur Leukocyte Esterase Urinalysis Comment Adenovirus (PCR) B.parapertussis DNA PCR C. pneumoniae DNA (PCR) Coronavirus OC43 (PCR) Coronavirus HKU1 (PCR) Coronavirus 229E (PCR) Coronavirus NL63 (PCR) Human Metapneumovirus Influenza Type A (PCR) Influenza Type B (PCR) M. pneumoniae (PCR) Parainfluenza 1 (PCR) Parainfluenza 2 (PCR) Parainfluenza 3 (PCR) Parainfluenza 4 (PCR) RSV (PCR) Entero/Rhino (PCR) History of Present Illness HPI: Mr. Weinstein is a 89 yo who was recently admitted for ulcerative colitis 2 weeks ago and sent to [facility] for inpt rehab and presents back to the ER due to weakness and cough. The family at the bedside report that he started to develop a cough with wheezing about a week ago. He was then placed on azithromycin and breahting treatments for this. His symptoms got progressively worse over the past 3 days, early this morning staff noted that his Sa)2 was in the 80's and pt was then brought to the er. Hospital Course Hospital course: Brief Summary presented to the hospital from SNU after there was a concern for respiratory distress and cough and possibly some confusion. Pt was admitted with initially a dx of pna but nothing was noted on the cxr. No other source of infection was identified in evaluation and procalcitonin was negative. Respiratory viral panel was negative as well. Pt did well during hospital stay without any abx and was not in any respiratory distress and in fact did not require any O2 or have any cough. Mentation seemed to be at baseline as well. Pt likely has dementia and would benefit from neuropsych testing as outpatient. Pt did have mild hypernatremia and LE edema and so pt received D5 and lasix and that improved. Pt would benefit from echocardiogram as outpatient as well as his BNP was 8K. Pt was stable and was discharged back to SNU facility. Detailed Summary 09/25/16 13:20 Pt seems to be doing well this am, unclear why he was admitted, pt was likely just dehydrated and possibly had URI, labs and vitals are mostly unremarkable for acute pathology. Will plan for d/c tomorrow. 09/26/16 09:31 Pt doing well, will treat hypernatremia and fluid overload today and plan for d/ c back to facility on Tuesday. Discharge Plan - Med Rec/Dispo [place] Instructions: Pneumonia (GEN) Prescriptions: Continue Tolterodine Tartrate [Detrol LA] 4 mg PO DAILY #0 acetaminophen 325 mg tablet 325 mg PO PRN #0 Calcium Carbonate/Vitamin D3 (Vitamin D-3 400 Units Tablet) 1 tab PO DAILY # 0 Loperamide HCl [Loperamide] See Label Instructions PO Q4H PRN #30 PRN Reason: loose stool sulfaSALAzine [Sulfasalazine] 500 mg PO TID Niacin 50 mg PO DAILY #0 [place]-3 Fatty Acids/Fish Oil [[place] 3 1,000 mg Softgel] 2 cap PO BID #0 Omeprazole (Prilosec) 20 mg PO BID #0 Simvastatin [Zocor] 20 mg PO HS #0 PredniSONE [Deltasone] 10 mg PO DAILY #39 Discontinued Ibuprofen/Diphenhydramine (Advil Pm Caplet) 1 tab PO HS #0 Loratadine (Claritin) 10 mg PO BID #0 - Disposition 03 To SNU Not [facility] ([facility])
[2016-09-27] MEDS: SALINE FLUSH 10ml SYRINGE IVF PRN (20:43)
[2016-09-27] MEDS: SIMVASTATIN 20 MG TABLET PO SCH (21:00)
[2016-09-28] MEDS: IPRATROPIUM/ALBUTEROL 2.5mg-0.5mg/3ml NEB AEROSOL SCH (08:17)
[2016-09-28] MEDS: BUDESONIDE INH.SOLN 0.5mg/2ml NEB AEROSOL SCH (08:17)
[2016-09-28] MEDS: ENOXAPARIN 40 MG/0.4 ML INJECTION SQ SCH (09:39)
[2016-09-28] MEDS: PredniSONE 10 MG TABLET PO SCH (09:39)
[2016-09-28] MEDS: FUROSEMIDE 40 MG/4 ML INJECTION IVP SCH (09:39)
[2016-09-28] MEDS: SALINE FLUSH 10ml SYRINGE IVF PRN (09:41)
--- NOTE | 2016-09-28 13:50 | Progress Note ---
Subjective: Pt doing well, denies any acute complaints. Awaiting placement. Objective Vital signs: Temp Pulse Resp BP Pulse Ox 96.3 F L 104 H 18 150/70 H 92 09/28/16 07:13 09/28/16 07:13 09/28/16 08:12 09/28/16 07:13 09/28/16 08:12 Weight: 102.5 kg - Constitutional Present: no acute distress - Routine HEENT Exam Head: Present: normocephalic, atraumatic Eye: Present: PERRL - Routine Respiratory Exam Present: CTA bilaterally. Absent: wheezes - Routine Cardiovascular Exam Present: RRR, murmur - Routine Abdominal Exam Present: soft, non distended, non tender - Routine Extremities Exam Present: edema. Absent: cyanosis, clubbing - Routine Skin Exam Present: dry, ecchymosis - Routine Neurological Exam Present: alert. Absent: oriented X3 Results - Labs CBC & Chem 7: 09/26/16 04:37 09/27/16 04:31 Assessment and Plan (1) Ulcerative colitis Current visit: No Status: Chronic 09/25/16 06:52 continues to be a problem, will cont on lomtil, wound care for the decubitus, (2) CKD (chronic kidney disease) Current visit: No Status: Chronic (3) Anemia Current visit: Yes Status: Acute (4) Anemia Current visit: Yes Status: Acute Assessment and Plan: Cough -CXR does not show any acute pathology, pt has minimal cough and sputum production -Vitals are stable, on RA sats are ~95% -viral panel neg, mentation seems to be at baseline -d/c abx AMS/dementia -Pt likely has dementia and is likely close to baseline -Pt was admitted to the hospital a couple of weeks ago and had very similar mentation most of the hospital stay -TSH wnls, B12 wnls, CT head in 08/25 showed moderate atrophy and chronic microvascular ischemia -discussed disposition with family and they agree, pt needs neuropsych testing UC -Stable, on prednisone, sulfasalazine, lomitil Leukocytosis -On prednisone Mild Hypernatremia -Resolved LE edema -Much improved -Pt received generous IV fluids on admission d/t possibility of infection -Switched to PO 40 BID lasix from IV -Pt needs echo CKD -Stable Ppx -DVT Sepsis Assessment - Evaluation Sepsis screening result: Sepsis Risk Hospital Course Summary Disclaimer: The visit summary below is not to be considered part of the above Progress Note. Hospital Course: Brief Summary presented to the hospital from SNU after there was a concern for respiratory distress and cough and possibly some confusion. Pt was admitted with initially a dx of pna but nothing was noted on the cxr. No other source of infection was identified in evaluation and procalcitonin was negative. Respiratory viral panel was negative as well. Pt did well during hospital stay without any abx and was not in any respiratory distress and in fact did not require any O2 or have any cough. Mentation seemed to be at baseline as well. Pt likely has dementia and would benefit from neuropsych testing as outpatient. Pt did have mild hypernatremia and LE edema and so pt received D5 and lasix and that improved. Pt would benefit from echocardiogram as outpatient as well as his BNP was 8K. Pt was stable and was discharged back to SNU facility. Detailed Summary 09/25/16 13:20 Pt seems to be doing well this am, unclear why he was admitted, pt was likely just dehydrated and possibly had URI, labs and vitals are mostly unremarkable for acute pathology. Will plan for d/c tomorrow. 09/26/16 09:31 Pt doing well, will treat hypernatremia and fluid overload today and plan for d/ c back to facility on Tuesday. 09/28/16 13:50 Pt stable, discharged orders were put in yesterday but pt apparently did not go d/t insurance not accepting, will try again to discharge today.
--- NOTE | 2016-09-28 14:14 | Extended Care Facility Orders ---
Admission Orders Allergies/Adverse Reactions: Allergies levofloxacin Allergy (Intermediate, Verified 09/25/16 19:20) CONFUSION lisinopril Allergy (Mild, Verified 09/25/16 19:20) COUGH Admitting Diagnosis: Pneumonia Admitting Physician: Aguilar aMlik MD Attending Physician: Aguilar Malik MD Anticiapted Length of Stay: 30 days or less Rehab Potential: good Rehab Prognosis: good Wound/Incision Care: per wound care protocol May use Facility Protocol or Standing Orders: Yes May have flu vaccine: Yes Evaluations/Treatment: PT, OT Halfway Certification: I certify that SNF services are required to be given on an Inpatient basis because of the patients need for [facility] care on a continuing basis for the condition(s) for which he/she received inpatient hospital services prior to his/her transfer to the SNF. SNF inpatient care is necessary for the following reasons Indication for Halfway: Wound Care/Assessment, Other - Additional Information
[2016-09-28] MEDS ORDERED: FUROSEMIDE 40 MG TABLET PO SCH (17:00)
== END 2016-09-28 16:00 | DRG 948 ==
LOC: ED 03:16 → MED 05:36
PROVIDERS: ADMIT Internal Medicine; ATTEND Internal Medicine